=== PATIENT | female | born 1960 | race American Indian/Alaskan Native ===

== ENCOUNTER 2017-02-02 19:06 | Emergency (ER) | payer OTHER ==
[2017-02-03] MEDS ORDERED: MOTRIN PO ONE (00:35)
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
[2017-02-03 01:41] VITALS: BP 160/98
== END 2017-02-03 01:45 | disposition home or self-care (01) ==
LOC: ED 19:06
DX: M79.1 Myalgia (principal); V49.59XA Passenger injured in collision with other motor vehicles in traffic accident, initial encounter; Y93.9 Activity, unspecified; Y92.9 Unspecified place or not applicable; Y99.9 Unspecified external cause status
CPT/HCPCS: 99282